=== PATIENT | male | born 1975 | race Two or more races ===

== ENCOUNTER 2023-06-17 19:16 | Emergency (ER) | payer SELFPAY ==
[~2023-06-17] VITALS: Ht 167.6 cm; Wt 83.7 kg
[2023-06-18 01:06] VITALS: BP 123/76; PULSE 51; RESP 18; TEMP 97.5; O2SAT 95
== END 2023-06-18 01:07 | disposition home or self-care (01) ==
LOC: ER 19:16
DX: R51.9 Headache, unspecified (principal)
CPT/HCPCS: 70450